=== PATIENT | female | born 1970 | race Caucasian/White ===

== ENCOUNTER → 2025-04-22 10:14 | Outpatient (BNVA) | payer MEDICAID, OTHER, SELFPAY | PROVIDERS: Family Provider Family Medicine; Visit Provider Nurse Practitioner Women's Health | DX: N95.1 Menopausal and female climacteric states (principal) | CPT/HCPCS: 82670; 83001 ==

== ENCOUNTER → 2025-05-06 10:12 | Outpatient (BNVA) | payer OTHER, MEDICAID, SELFPAY | PROVIDERS: Family Provider Family Medicine; Visit Provider Nurse Practitioner Women's Health | DX: N91.2 Amenorrhea, unspecified (principal); R10.2 Pelvic and perineal pain; N95.1 Menopausal and female climacteric states; R23.2 Flushing; Z98.890 Other specified postprocedural states | CPT/HCPCS: 76830; 84146 ==

== ENCOUNTER → 2025-06-12 14:36 | Outpatient (BNVA) | payer OTHER, MEDICAID, SELFPAY | PROVIDERS: Family Provider Family Medicine; Visit Provider Nurse Practitioner Women's Health | DX: N95.1 Menopausal and female climacteric states (principal) | CPT/HCPCS: 82670; 83001 ==

== ENCOUNTER → 2025-09-09 12:10 | Outpatient (BNVA) | payer OTHER, SELFPAY | PROVIDERS: Family Provider Family Medicine; Visit Provider Nurse Practitioner Women's Health | DX: R53.82 Chronic fatigue, unspecified (principal); Z79.890 Hormone replacement therapy | CPT/HCPCS: 82670; 84270; 84403 ==